=== PATIENT | male | born 1945 | race Caucasian/White ===

== ENCOUNTER 2022-10-25 12:45 | Day surgery (SDC) | payer MEDICARE, SELFPAY ==
[2022-10-25 13:08] VITALS: BP 141/100; PULSE 62; RESP 18; TEMP 36.5; O2SAT 91
--- NOTE | 2022-10-25 13:32 | W.ANESPRE ---
General Info Date of Service Date Performed: 10/25/22 Height: 5 ft 11 in Weight: 105.4 kg Body Mass Index (BMI): 32.3 Surgical Procedure: Operation Date: 10/25/22 14:40 Proposed Procedure Side Surgeon p Cataract Extraction with IOL Implant Left Jamie Alejandro MD Meds Allergies and Home Medications Allergies Allergy/AdvReac Type Severity Reaction Status Date / Time iodine Allergy Unverified 10/25/22 13:06 Home Medication Medication Instructions Recorded atorvastatin 40 mg tablet 40 mg PO DAILY 10/22/22 clonazepam 1 mg tablet 1 mg PO BID PRN 10/22/22 furosemide 40 mg tablet 40 mg PO DAILY 10/22/22 lisinopril 20 mg tablet 20 mg PO DAILY 10/22/22 metoprolol succinate 100 mg 150 mg PO BID 10/22/22 tablet,extended release 24 hr oxycodone-acetaminophen 5 mg-325 1 tab PO TID PRN 10/22/22 mg tablet quetiapine 50 mg tablet 50 mg PO HS 10/22/22 rivaroxaban 20 mg tablet (Xarelto) 20 mg PO HS 10/22/22 Current Visit Medications: Current Medications Generic Name Dose Route Start Last Admin Trade Name Freq PRN Reason Stop Dose Admin Acetaminophen 1,000 mg 10/25/22 06:00 Acetaminophen 500 Mg Tab PO Q4H PRN PRN Miscellaneous Medication 0 ml 10/25/22 06:00 Prednisolone 1%, Moxifloxacin 0.5%, Nepafenac 0.1% 5ml Btl OS DIRECTED [facility] Miscellaneous Medication 0 ml 10/25/22 06:00 Tropicam./Phenyleph. (1/2.5%) 5 Ml Btl OS DIRECTED [facility] Tetracaine HCl 0 ml 10/25/22 06:00 Tetracaine 0.5% 4 Ml Btl [facility] DIRECTED [facility] Medical History Medical History (Updated 10/25/22 @ 13:48 by Mary Perez RN) Acute subendocardial infarction Afib pt reports this on 10/25/22 BCC (basal cell carcinoma of skin) CHF (congestive heart failure) Chronic pain Diabetes mellitus pt. denies Difficult airway Per [facility] note related to [facility] anesthetic Geoffrey type IIa hyperlipoproteinemia ARNEL (generalized anxiety disorder) Hypertensive disorder Insomnia Low back pain Obesity Surgical History Surgical History (Updated 10/25/22 @ 13:36 by Mary Perez RN) H/O angioplasty 201 History of ankle surgery left Hx of heart surgery F/u with cardiology last appt 08/2022 Tobacco Smoking/Tobacco Use Status: Former Tobacco Use Alcohol Alcohol Intake: never Substance Use Substance use: Never Substance use type: does not use Vital Signs and Lab Results Vital Signs Most Recent Vital Signs in EMR: Most Recent Vital Signs Temp Pulse Resp BP Pulse Ox 36.5 C 62 18 141/100 H 91 L 10/25/22 13:08 10/25/22 13:08 10/25/22 13:08 10/25/22 13:08 10/25/22 13:08 Lab Results Blood Type / Crossmatch: No Data to Display Complete Blood Count: No Data to Display Complete Metabolic Panel: No Data to Display Liver Function Panel: No Data to Display Coagulation Panel: No Data to Display Cardiac Panel: No Data to Display Arterial Blood Gas: No Data to Display Venous Blood Gas: No Data to Display Pancreas Panel: No Data to Display Thyroid Panel: No Data to Display Infectious Disease: No Data to Display Blood Cultures: No Data to Display Toxicology Panel: No Data to Display Imaging and Studies Imaging and Studies Study information below may be from another EMR and interpreted by another provider. Please see original notes in EMR for more complete details. Echocardiogram Summary: 09/21/2022: ECHO in [facility] record. Please see original. LVEF estimated 55%. RV mildly dilated with mildly decreased systolic function. LA severely dilated. RA mildly dilated. No , no AR, no MS, MR severity couldn't be determined, no TS, TR severity couldnt be determined. Aortic dilation of 3.8cm Anesthesia Assessment and Plan Anesthesia History Personal History: Other (Difficult airway) Family History: No Family History of Anesthesia Complications Exercise Tolerance Exercise Tolerance: Metabolic Equivalents<4 Pertinent Negatives Pertinent Negatives: No Symptoms of GERD and No Major Pulmonary Symptoms or Complaints Cardiac & Pulmonary Exam Cardiac Exam: Normal S1/S2 Heart Sounds Pulmonary Exam: Clear Bilateral Breath Sounds Implantable Cardiac Device Does patient have a Pacemaker or an ICD?: No Airway Exam Known Difficult Airway: Yes Previous Airway Comments:: Noted in [facility] cards visit problem list. Appears to be related to an anesthetic around 2010. Mallampati Class: 2 Mouth Opening: Normal (> 3cm) Thyromental Distance: Greater than 3 cm Neck Range of Motion: Full ROM Neck Circumference: Normal Teeth Condition: Generalized Poor Dentition Tooth Numberin. No upper teeth 2. Appears no teeth left back 35-38 ASA Classification ASA Score: ASA 3 Emergency Case?: No NPO Status NPO Status: NPO Clears >2 hours, Solids >8 hours Anesthesia Plan Resuscitation Status: Full Code Anesthesia Technique: MAC Anesthesia Airway Planned: Natural Airway Monitors Used: Standard Monitors Preoperative Comments:: 76 yo male, significant PMH related to cards. most recent EF 55%, back in AF. Has a history of AF (on xarelto). Highly recommend that patient not receive sedation today. Patient is amenable to this approach, though he would prefer something but is willing to give it a try. We discussed PIV placement as the alternative and potentially some precedex or very small dose midazolam.
[2022-10-25 13:34] VITALS: BMI 32.3
[2022-10-25] MEDS: Tropicam./Phenyleph. (1/2.5%) 5 ML BTL OS ×3 (13:54→14:05)
[2022-10-25] MEDS: Lidocaine 1% Pres-Free 5 ML VIAL (14:26)
[2022-10-25] MEDS: Tetracaine 0.5% 4 ML BTL OS (14:26)
[2022-10-25] MEDS: Balanced Salt Soln.-PLUS 500 ML BAG (14:27)
[2022-10-25] MEDS: Duovisc Viscoelastic System EACH 1 EACH (14:28)
[2022-10-25] MEDS: Trypan Blue 0.06% 0.5 ML SYR (14:29)
[2022-10-25] MEDS: Povidone-Iodine Ophth 30 ML BTL (14:29)
[2022-10-25] MEDS: Lidocaine 2% Jelly 6 ML SYR (14:34)
--- NOTE | 2022-10-25 14:55 | PDOC.DSDIS_ITS ---
Date of service: 10/25/22 Time of Service: 14:56 Discharge Plan Disposition Patient Disposition: Home Discharge Details Attending Provider: Jamie Alejandro Primary Care Provider: Anant Sofia [place] Meds and New Rx's Prescriptions: No Action furosemide 40 mg Tablet 40 mg PO DAILY atorvastatin 40 mg Tablet 40 mg PO DAILY lisinopril 20 mg Tablet 20 mg PO DAILY metoprolol succinate 100 mg Tablet Extended Release 24 Hr 150 mg PO BID clonazepam 1 mg Tablet 1 mg PO BID PRN oxycodone-acetaminophen 5-325 mg Tablet 1 tab PO TID PRN quetiapine 50 mg Tablet 50 mg PO HS Xarelto 20 mg Tablet 20 mg PO HS Discharge Instructions Stand Alone Forms: Post-op Topical Cataract, Rome Zavala (DSU) Discharge Orders Discharge Orders: Discharge Order (Routine); Ordered 10/25/22 Ordered By: Jamie Alejandro DS: Diagnosis Discharge Diagnosis (1) Nuclear sclerotic cataract of left eye: Status: Resolved (2) Cortical cataract of left eye: Status: Resolved (3) Posterior subcapsular age-related cataract of left eye: Status: Resolved
--- NOTE | 2022-10-25 14:57 | ROE_ITS ---
Date of service: 10/25/22 Time of Service: 14:57 Operative Note Operative Note DATE OF PROCEDURE: 10/25/22 PRE-OP DIAGNOSIS: Nuclear/cortical/posterior subcapsular cataract, left eye Absent red reflex, left eye POST-OP DIAGNOSIS: same PROCEDURE: Cataract extraction using phacoemulsification with intraocular lens implant, left eye SURGEON: Jamie Alejandro ANESTHESIA TYPE: Local By Surgeon and MAC Refer to Anesthesia Record PATHOLOGY: none sent COMPLICATIONS: None Patient was transported to: same day Patient's condition: stable Implants: Inder and Inder Tecnis Eyhance DIB00 Indications: Progressive decreased vision due to cataract, left eye Procedure Description: CATARACT SURGERY OPERATIVE REPORT PREOPERATIVE DIAGNOSIS: 1. Nuclear/cortical/posterior subcapsular cataract, left eye POSTOPERATIVE DIAGNOSIS: Same OPERATION: 1. Cataract extraction using phacoemulsification with posterior chamber intraocular lens implant, left eye. 2. Capsular staining with VisionBlue IOL: IOL Can Labeler/Model: Inder & Inder Tecnis Eyhance DIB00 IOL Power: + 18.0 diopters IOL Serial Number: [id number] Optic Diameter: 6.0 mm Haptic/Overall Diameter: 13.0 mm PHACO INFO: [place]ar Kenshourion Vision System with OZil and Active Fluidics Cumulative Dispersed Energy (CDE): 9.60 seconds SURGEON: Jamie Alejandro MD, BAKARI ANESTHESIA: Monitored A [facility] ([facility]), with local sub-tenon's anesthetic infiltration COMPLICATIONS: None SPECIMENS: None INDICATIONS FOR PROCEDURE: The patient is a 76-year-old gentleman with history of progressive decreased vision in his left eye. He is noted to have a dense nuclear/cortical/posterior subcapsular cataract with counting fingers vision. The option of cataract surgery was offered to the patient and he wished to proceed. PROCEDURE: The correct surgical eye was identified and marked as the left eye and the pupil was dilated in the preoperative area using mydriatics and cycloplegics. The dilated pupil size was 6.0 mm. The patient elected to p roceed without oral sedation. The patient was brought to the operating room where cardiopulmonary monitoring was instituted and surgical time-out was performed, confirming the correct operative eye and IOL power. Topical anesthesia was administered and ophthalmic povidone-iodine 5% was instilled into the conjunctival fornices. Lidocaine gel was applied to the cornea and the bailey-ocular area was prepped with Betadine 10% solution and draped in the usual sterile fashion for intraocular surgery, including an aperture drape. A Tegaderm transparent film dressing was cut in half and used to cover the lashes and lid margins. Care was taken to sequester the lashes and lid margins under the Tegaderm dressing. A lid speculum was placed between the lids of the operative eye and the Bolivar LuxOR Revalia operating microscope was maneuvered into position. Rebekah scissors were then used to make a conjunctival buttonhole approximately 6mm posterior to the limbus in the inferonasal quadrant. Blunt dissection was carried out to expose bare sclera, and a blunt-tipped sub-tenon?s anesthesia cannula was introduced and passed posteriorly along the globe where non- preserved plain lidocaine was injected into posterior sub-Tenon?s space. A sideport knife was used to make a paracentesis port superiorly/superiortemporally. VisionBlue was then injected into the anterior chamber and allowed to sit for 10 to 12 seconds. Intraocular phenylephrine/lidocaine was injected int the anterior chamber.. The anterior chamber was filled with viscoelastic. A keratome knife was used to construct a 2-plane near-clear corneal tunnel extending 2.0mm into clear cornea temporally. A flap was raised on the anterior capsule and capsulorhexis forceps were used to complete a continuous curvilinear capsulorhexis of 5.0 mm. The anterior capsule was noted to be very thin with some lenticular in tumescence. The capsule wanted to stray peripherally in the inferior quadrant. Balanced salt solution was then used to perform cortical cleaving hydrodissection and nuclear hydrodelineation until the lens could be freely rotated within the capsular bag. The lens nucleus was then disassembled and removed within the capsular bag and iris plane using phacoemulsification. Residual cortical material was removed using the 45-degree angled silicone I/A tip with 0.3mm port. The posterior capsule was carefully polished to remove as much residual lens epithelial cells as safely possible. There was very dense adherent posterior subcapsular plaque in the subincisional area and inferotemporal quadrant which could not be safely removed despite extensive polishing. The capsular bag was then inflated and the anterior chamber deepened with viscoelastic. The lens implant described above was inserted into the capsular bag using the Inder and Inder Simplicity pre-loaded injector. . A Kuglen hook was used to dial the IOL into position. Residual viscoelastic was then removed first from posterior to the IOL, then from the anterior chamber using the I/A handpiece. The lens implant was noted to center nicely within the capsular bag. The incisions were stromally hydrated, and the anterior chamber was reformed using BSS. Then 0.5cc of moxifloxacin 1.0mg/ml were injected into the capsular bag and anterior chamber. The incisions were checked with a Weck spear and found to be secure. Several drops of ophthalmic povidone-iodine 5% were then applied to the eye followed by two drops of Imprimis combination prednisolone/moxifloxacin/nepafenac solution. The drapes were removed and a clear plastic protective eye shield was placed over the eye. The patient was then returned to Same Day Surgery in stable condition.
--- NOTE | 2022-10-25 15:04 | W.ANESPOSTOP ---
Postoperative Evaluation Date, Time and Location Date Performed: 10/25/22 Time Performed: 15:04 Patient Location: Day Surgery Unit Vital Signs Most Recent Imported Vital Signs: Most Recent Vital Signs Temp Pulse Resp BP Pulse Ox 36.5 C 62 18 141/100 H 91 L 10/25/22 13:08 10/25/22 13:08 10/25/22 13:08 10/25/22 13:08 10/25/22 13:08 Pain Score Most Recent Pain Score: Most Recent Pain Score Pain Level 0 10/25/22 13:08 Assessment Mental Status: Awake (Alert & Oriented to Patient Baseline) Airway and Respiratory Function: Patent airway with normal (patient baseline) respiratory exam Cardiovascular Function: Hemodynamically Stable Hydration Status: Adequately Hydrated Nausea & Vomiting: No Nausea or Vomiting Pain: Pt. Denies Any Pain Peripheral Nerve Block: Patient did not receive a nerve block Teaching Patient Teaching: Advised to seek followup for the following concerns (See explanation) Concerns: Other (Patient increased his furosemide back to 100 mg/day due to pedal edema. Patient initially denied letting his provider know. I've asked him to followup with his Cards provider to make them aware.) Postoperative Comments:: Patient with questions related to surgery. I've referred him to Dr. Alejandro, I've asked Dr. Alejandro to see the patient at bedside.
[2022-10-25 15:36] VITALS: BP 114/79; PULSE 64; RESP 16; TEMP 36.4; O2SAT 96
== END 2022-10-25 15:27 | disposition home or self-care (01) ==
LOC: SUR 12:47
PROVIDERS: PCP Family Medicine; Visit Provider Ophthalmology
PROC: (CPT 66982; principal; 2022-10-25 14:30)
DX: H25.042 Posterior subcapsular polar age-related cataract, left eye (principal); H26.8 Other specified cataract
CPT/HCPCS: 66982; V2632

== ENCOUNTER 2022-11-12 11:33 | Day surgery (SDC) | payer MEDICARE, SELFPAY ==
--- NOTE | 2022-11-12 11:12 | ANES.PREOP_ITS ---
General Info Date of Service Date Performed: 11/12/22 Height: 5 ft 11 in Weight: 105.1 kg Body Mass Index (BMI): 32.3 Surgical Procedure: Operation Date: 11/12/22 13:40 Proposed Procedure Side Surgeon p Cataract Extraction with IOL Implant Right Jamie Alejandro MD Meds Allergies and Home Medications Allergies Allergy/AdvReac Type Severity Reaction Status Date / Time iodine Allergy Verified 11/12/22 12:28 Home Medication Medication Instructions Recorded atorvastatin 40 mg tablet 40 mg PO DAILY 10/22/22 clonazepam 1 mg tablet 1 mg PO BID PRN 10/22/22 furosemide 40 mg tablet 40 mg PO DAILY 10/22/22 lisinopril 20 mg tablet 20 mg PO DAILY 10/22/22 metoprolol succinate 100 mg 150 mg PO BID 10/22/22 tablet,extended release 24 hr oxycodone-acetaminophen 5 mg-325 1 tab PO TID PRN 10/22/22 mg tablet quetiapine 50 mg tablet 50 mg PO HS 10/22/22 rivaroxaban 20 mg tablet (Xarelto) 20 mg PO HS 10/22/22 Current Visit Medications: Current Medications Generic Name Dose Route Start Last Admin Trade Name Freq PRN Reason Stop Dose Admin Acetaminophen 1,000 mg 11/12/22 07:47 Acetaminophen 500 Mg Tab PO Q4H PRN PRN Miscellaneous Medication 0 ml 11/12/22 07:47 Tropicam./Phenyleph. (1/2.5%) 5 Ml Btl OD DIRECTED [facility] Miscellaneous Medication 0 ml 11/12/22 07:47 Prednisolone 1%, Moxifloxacin 0.5%, Nepafenac 0.1% 5ml Btl OD DIRECTED [facility] Tetracaine HCl 0 ml 11/12/22 07:47 Tetracaine 0.5% 4 Ml Btl OD DIRECTED [facility] PFSH Active Problems Active Problems: Problem Status Onset Code Posterior subcapsular age-related cataract of left eye H25.042 Cortical cataract of left eye H26.9 Nuclear sclerotic cataract of left eye H25.12 Medical History Medical History Acute subendocardial infarction Afib pt reports this on 10/25/22 BCC (basal cell carcinoma of skin) CHF (congestive heart failure) Chronic pain Diabetes mellitus pt. denies Difficult airway Per [facility] note related to [facility] anesthetic Geoffrey type IIa hyperlipoproteinemia ARNEL (generalized anxiety disorder) Hypertensive disorder Insomnia Low back pain Obesity Surgical History Surgical History H/O angioplasty 201 History of ankle surgery left Hx of heart surgery F/u with cardiology last appt 08/2022 Tobacco Smoking/Tobacco Use Status: Former Tobacco Use Alcohol Alcohol Intake: never Substance Use Substance use: Never Substance use type: does not use Vital Signs and Lab Results Lab Results Blood Type / Crossmatch: No Data to Display Complete Blood Count: No Data to Display Complete Metabolic Panel: No Data to Display Liver Function Panel: No Data to Display Coagulation Panel: No Data to Display Cardiac Panel: 2 No Data to Display Arterial Blood Gas: No Data to Display Venous Blood Gas: No Data to Display Pancreas Panel: No Data to Display Thyroid Panel: No Data to Display Infectious Disease: No Data to Display Blood Cultures: No Data to Display Toxicology Panel: No Data to Display Imaging and Studies Imaging and Studies Study information below may be from another EMR and interpreted by another provider. Please see original notes in EMR for more complete details. Echocardiogram Summary: 09/21/2022: ECHO in [facility] record. Please see original. LVEF estimated 55%. RV mildly dilated with mildly decreased systolic function. LA severely dilated. RA mildly dilated. No , no AR, no MS, MR severity couldn't be determined, no TS, TR severity couldnt be determined. Aortic dilation of 3.8cm Anesthesia Assessment and Plan Anesthesia History Personal History: Other (Difficult airway) Family History: No Family History of Anesthesia Complications Exercise Tolerance Exercise Tolerance: Metabolic Equivalents<4 Pertinent Negatives Pertinent Negatives: No Symptoms of GERD Cardiac & Pulmonary Exam Cardiac Exam: Normal S1/S2 Heart Sounds Pulmonary Exam: Clear Bilateral Breath Sounds Implantable Cardiac Device Does patient have a Pacemaker or an ICD?: No Airway Exam Known Difficult Airway: Yes Mallampati Class: 2 Mouth Opening: Normal (> 3cm) Thyromental Distance: Greater than 3 cm Neck Range of Motion: Full ROM Neck Circumference: Normal Teeth Condition: Generalized Poor Dentition ASA Classification ASA Score: ASA 3 Emergency Case?: No NPO Status NPO Status: NPO Clears >2 hours, Solids >8 hours Anesthesia Plan Resuscitation Status: Full Code Anesthesia Technique: MAC Anesthesia Airway Planned: Natural Airway Monitors Used: Standard Monitors Preoperative Comments:: From last Preoperative note 10/25/2022: Preoperative Comments:: 76 yo male, significant PMH related to cards. most recent EF 55%, back in AF. Has a history of AF (on xarelto). Highly recommend that patient not receive sedation today. Patient is amenable to this approach, though he would prefer something but is willing to give it a try. We discussed PIV placement as the alternative and potentially some precedex or very small dose midazolam. Patient did well last anesthetic and is fine with the same plan this visit. Denies any changes to health since his last visit.
[2022-11-12 12:35] VITALS: BP 122/85; PULSE 84; RESP 16; TEMP 36.4; O2SAT 93
[2022-11-12] MEDS: Tropicam./Phenyleph. (1/2.5%) 5 ML BTL OD ×3 (12:47→12:57)
[2022-11-12 13:26] VITALS: BMI 32.3
[2022-11-12] MEDS: Povidone-Iodine Ophth 30 ML BTL (15:46)
[2022-11-12] MEDS: Tetracaine 0.5% 4 ML BTL OD (15:46)
[2022-11-12] MEDS: Lidocaine 2% Jelly 6 ML SYR (15:48)
[2022-11-12] MEDS: Balanced Salt Soln.-PLUS 500 ML BAG (15:54)
[2022-11-12] MEDS: Duovisc Viscoelastic System EACH 1 EACH (15:55)
[2022-11-12] MEDS: Trypan Blue 0.06% 0.5 ML SYR (15:57)
--- NOTE | 2022-11-12 16:23 | PDOC.DSDIS_ITS ---
Date of service: 11/12/22 Time of Service: 16:23 Discharge Plan Disposition Patient Disposition: Home Discharge Details Attending Provider: Jamie Alejandro Primary Care Provider: Anant Sofia [place] [facility] and New Rx's Prescriptions: No Action furosemide 40 mg Tablet 40 mg PO DAILY atorvastatin 40 mg Tablet 40 mg PO DAILY lisinopril 20 mg Tablet 20 mg PO DAILY metoprolol succinate 100 mg Tablet Extended Release 24 Hr 150 mg PO BID clonazepam 1 mg Tablet 1 mg PO BID PRN oxycodone-acetaminophen 5-325 mg Tablet 1 tab PO TID PRN quetiapine 50 mg Tablet 50 mg PO HS Xarelto 20 mg Tablet 20 mg PO HS Discharge Instructions Stand Alone Forms: Post-op Topical Cataract, [place] Zavala (DSU) Discharge Orders Discharge Orders: Discharge Order (Routine); Ordered 11/12/22 Ordered By: Jamie Alejandro DS: Diagnosis Discharge Diagnosis (1) Nuclear age-related cataract, right eye: Status: Resolved (2) Cortical cataract of right eye: Status: Resolved (3) Posterior subcapsular age-related cataract, right eye: Status: Resolved
--- NOTE | 2022-11-12 16:25 | W.PM.OP ---
Date of service: 11/12/22 Time of Service: 16:25 Operative Note Operative Note DATE OF PROCEDURE: 11/12/22 PRE-OP DIAGNOSIS: Dense nuclear/cortical/posterior subcapsular cataract, right eye POST-OP DIAGNOSIS: same PROCEDURE: Cataract extraction using phacoemulsification with intraocular lens implant, right eye SURGEON: Jamie Alejandro ANESTHESIA TYPE: Local By Surgeon and MAC Refer to Anesthesia Record ESTIMATED BLOOD LOSS: 0 PATHOLOGY: none sent COMPLICATIONS: None Patient was transported to: same day Patient's condition: stable Implants: Inder & Inder Tecnis Eyhance [id number] Indications: Progressive visual loss due to cataract, right eye Procedure Description: CATARACT SURGERY OPERATIVE REPORT PREOPERATIVE DIAGNOSIS: 1. Dense nuclear/cortical/posterior subcapsular cataract, right eye POSTOPERATIVE DIAGNOSIS: Same OPERATION: 1. Cataract extraction using phacoemulsification with posterior chamber intraocular lens implant, right eye. IOL: IOL [employer] Claim Adjuster/Model: Inder & Inder Tecnis Eyhance DIB00 IOL Power: + 17.5 diopters IOL Serial Number: [id number] Optic Diameter: 6.0mm Haptic/Overall Diameter: 13.0mm PHACO INFO: [place] JumpSellerurion Vision System with OZil and Active Fluidics Cumulative Dispersed Energy (CDE): 10.18 seconds SURGEON: Jamie Alejandro MD, BAKARI ANESTHESIA: Monitored Anesthesia Care (MAC), with local sub-tenon's anesthetic infiltration COMPLICATIONS: None SPECIMENS: None INDICATIONS FOR PROCEDURE: The patient is a 76-year-old gentleman with history of diminished visual acuity in his right eye secondary to the development of significant nuclear/cortical/posterior subcapsular cataract. He has already undergone cataract surgery in the left eye to remove a dense cataract there and is doing well postoperatively. He now presents for cataract surgery in the right eye. PROCEDURE: The correct surgical eye was identified and marked as the right eye and the pupil was dilated in the preoperative area using mydriatics and cycloplegics. The dilated pupil size was 7.0 mm. . The patient elected to proceed without oral sedation. The patient was brought to the operating room where cardiopulmonary monitoring was instituted and surgical time-out was performed, confirming the correct operative eye and IOL power. Topical anesthesia was administered and ophthalmic povidone-iodine 5% was instilled into the conjunctival fornices. Lidocaine gel was applied to the cornea and the bailey-ocular area was prepped with Betadine 10% solution and draped in the usual sterile fashion for intraocular surgery, including an aperture drape. A Tegaderm transparent film dressing was cut in half and used to cover the lashes and lid margins. Care was taken to sequester the lashes and lid margins under the Tegaderm dressing. A lid speculum was placed between the lids of the operative eye and the [place] Lux[employer] Revalia operating microscope was maneuvered into position. Rebekah scissors were then used to make a conjunctival buttonhole approximately 6mm posterior to the limbus in the inferonasal quadrant. Blunt dissection was carried out to expose bare sclera, and a blunt-tipped sub-tenon?s anesthesia cannula was introduced and passed posteriorly along the globe where non-preserved plain lidocaine was injected into posterior sub-Tenon?s space. A sideport knife was used to make a paracentesis port inferotemporally. VisionBlue was injected into the anterior chamber and allowed to sit for 10 to 12 seconds. Intraocular phenylephrine/lidocaine was injected into the anterior chamber. The anterior chamber was filled with viscoelastic. A keratome knife was used to construct a 2-plane near-clear corneal tunnel extending 2.0mm into clear cornea superiortemporally. A flap was raised on the anterior capsule and capsulorhexis forceps were used to complete a continuous curvilinear capsulorhexis of 5.0 mm. The zonules were noted to be quite loose. The capsule was very thin. Balanced salt solution was then used to perform cortical cleaving hydrodissection and nuclear hydrodelineation until the lens could be freely rotated within the capsular bag. The lens nucleus was then disassembled and removed within the capsular bag and iris plane using phacoemulsification. The anterior chamber was very deep. Residual cortical material was removed using the I/A handpiece. The posterior capsule was carefully polished to remove as much residual lens epithelial cells as safely possible. The capsular bag was then inflated and the anterior chamber deepened with viscoelastic. The lens implant described above was inserted into the capsular bag using the Inder and Kizzy Simplicity pre-loaded injector. A Kuglen hook was used to dial the IOL into position. Residual viscoelastic was then removed first from posterior to the IOL, then from the anterior chamber using the I/A handpiece. The lens implant was noted to center nicely within the capsular bag. The incisions were stromally hydrated, and the anterior chamber was reformed using BSS. Then 0.5cc of moxifloxacin 1.0mg/ml were injected into the capsular bag and anterior chamber. The incisions were checked with a Weck spear and found to be secure. Several drops of ophthalmic povidone-iodine 5% were then applied to the eye followed by two drops of Imprimis combination prednisolone/moxifloxacin/nepafenac solution. The drapes were removed and a clear plastic protective eye shield was placed over the eye. The patient was then returned to Same Day Surgery in stable condition.
[2022-11-12 16:26] VITALS: BP 132/87; PULSE 70; RESP 16; TEMP 36.3; O2SAT 95
--- NOTE | 2022-11-12 16:37 | W.ANESPOSTOP ---
Postoperative Evaluation Date, Time and Location Date Performed: 11/12/22 Time Performed: 16:37 Patient Location: Day Surgery Unit Vital Signs Most Recent Imported Vital Signs: Most Recent Vital Signs Temp Pulse Resp BP Pulse Ox 36.3 C L 70 16 132/87 95 11/12/22 16:26 11/12/22 16:26 11/12/22 16:26 11/12/22 16:26 11/12/22 16:26 Pain Score Most Recent Pain Score: Most Recent Pain Score Pain Level 0 11/12/22 16:26 Assessment Mental Status: Awake (Alert & Oriented to Patient Baseline) Airway and Respiratory Function: Patent airway with normal (patient baseline) respiratory exam Cardiovascular Function: Hemodynamically Stable Hydration Status: Adequately Hydrated Nausea & Vomiting: No Nausea or Vomiting Pain: Pt. Denies Any Pain Peripheral Nerve Block: Patient did not receive a nerve block
== END 2022-11-12 16:44 | disposition home or self-care (01) ==
LOC: SUR 11:33
PROVIDERS: PCP Family Medicine; Visit Provider Ophthalmology
PROC: (CPT 66982; principal; 2022-11-12 13:30)
DX: H25.041 Posterior subcapsular polar age-related cataract, right eye (principal); H26.8 Other specified cataract
CPT/HCPCS: 66982; V2632